=== PATIENT | female | born 1985 | race Caucasian/White ===

== ENCOUNTER 2017-03-29 18:00 | Emergency (ER) | payer BC ==
[~2017-03-29] VITALS: Ht 157.5 cm; Wt 78.9 kg
[2017-03-29] MEDS: IV NORMAL SALINE 1000 ML BAG IV ONE ×2 (18:23→19:27)
[2017-03-29] MEDS: ONDANSETRON 4 MG/2 ML VIAL IV ONE (18:28)
[2017-03-29] MEDS ORDERED: ONDA4TAB8 SL (18:28)
[2017-03-29] MEDS ORDERED: ONDANSETRON 4 MG/2 ML VIAL ONE ×3 (18:36→21:11)
[2017-03-29 18:38] LABS: CREATININE 0.6 mg/dL (0.6-1.3); POTASSIUM 3.7 mmol/L (3.5-5.1)
[2017-03-29 18:42] LABS: BASOPHILS % (AUTO) 0.3 % (0.0-2.0); EOSINOPHILS # (AUTO) 0.1 K/uL (0.0-0.7); EOSINOPHILS % (AUTO) 0.5 % (0.0-7.0); HEMATOCRIT 41.1 % (37-47); HEMOGLOBIN 13.3 G/DL (12.0-16.0); LYMPHOCYTES # (AUTO) 1.5 K/UL (0.8-4.8); LYMPHOCYTES % (AUTO) 12.9 % (20.5-51.5); MEAN CORPUSCULAR HGB CONC 32 g/dL (32.0-37.0); MEAN CORPUSCULAR VOLUME 83.3 FL (81.0-99.0); MONOCYTES # (AUTO) 0.3 K/UL (0.1-1.30); NEUTROPHILS # (AUTO) 9.4 K/UL (1.8-8.9); NEUTROPHILS % (AUTO) 83.3 % (38.5-71.5); PLATELET COUNT (AUTO) 316 K/UL (150-450); RED BLOOD CELL COUNT(AUTO) 4.93 MIL/UL (4.2-5.4); WHITE BLOOD COUNT (AUTO) 11.3 K/UL (4.0-11.2)
[2017-03-29 18:43] LABS: BILIRUBIN,DIRECT 0.2 mg/dL (0.0-0.2); BILIRUBIN,TOTAL 1.2 mg/dL (0.2-1.0); TOTAL PROTEIN, SERUM 7.5 g/dL (6.4-8.2)
--- NOTE | 2017-03-29 18:44 | NUR ---
Patient is resting comfortably in bed with eyes closed, NAD noted. Family at the bedside.
[2017-03-29 19:13] LABS: BAND % (MANUAL) 2 % (0-10); EOSINOPHILS % (MANUAL) 1 % (0-8); LYMPHOCYTES % (MANUAL) 13 % (20-40); MONOCYTES % (MANUAL) 2 % (2-10); NEUTROPHILS % (MANUAL) 82 % (42-75)
[2017-03-29] MEDS: ONDANSETRON IV *ER 4 MG/2 ML VIAL IV ONE ×2 (19:19→21:03)
--- NOTE | 2017-03-29 19:20 | NUR ---
Received report from MARGY Guerra. Assumed care of pt at this time. Fluid bolus completed. U/S at bedside. Pt cont vomiting. MD notified and pt medicated, will monitor for effects of medication. Pt resting in position of comfort for self. Family at bedside.
[2017-03-29] MEDS: METOCLOPRAMIDE HCL 10 MG/2 ML VIAL IV ONE (21:03)
--- NOTE | 2017-03-29 21:04 | NUR ---
Second liter completed. Pt was to be discharged. Attempted discharge and pt began vomiting. MD notified and pt medicated, will monitor for effects of medication. Pt resting in position of comfort for self
[2017-03-29] MEDS ORDERED: METOCLOPRAMIDE HCL 10 MG/2 ML VIAL ONE (21:11)
--- NOTE | 2017-03-29 21:41 | NUR ---
Vomiting resolved. Pt sts she is ready to go home. Pt stable for discharge per MD. IV dc'd, catheter intact. Drsg applied. No problems noted to site. Pt and family given ACI. Both verbalized understanding of dc instructions. Pt ambulated out of er with steady gait and ride home.
[2017-03-29 21:44] VITALS: BP 130/65
[2017-03-29 22:03] LABS: *BILIRUBIN,URIN NEGATIVE (NEGATIVE); *BLOOD, URINE NEGATIVE (NEGATIVE); *CLARITY,URINE SLIGHTLY CLOUDY (CLEAR); *COLOR,URINE YELLOW (YELLOW); *KETONES,URINE 4+ (NEGATIVE); *PROTEIN,URINE 1+ (NEGATIVE); LEUKOCYTE ESTERASE ,URINE NEGATIVE (NEGATIVE); NITRITE, URINE NEGATIVE (NEGATIVE); PH,URINE 6.5 (5.0-8.0); UGLUCOSE NEGATIVE (NEGATIVE)
[2017-03-29 22:11] LABS: BACTERIA,URINE MANY /HPF (NONE SEEN); MUCUS,URINE MANY /LPF (0-FEW); SQUAMOUS EPITHELIAL CELL,UR MANY /HPF (NONE SEEN)
== END 2017-03-29 21:45 | disposition home or self-care (01) ==
LOC: ER 18:00
DX: O21.0 Mild hyperemesis gravidarum (principal); Z3A.13 13 weeks gestation of pregnancy; Z88.2 Allergy status to sulfonamides; Z88.6 Allergy status to analgesic agent
CPT/HCPCS: 36415; 76856; 83690; 85025; 86850; 86900; 86901; A4663; J2405; J2765; J7030

== ENCOUNTER 2017-06-06 21:03 | Emergency (ER) | payer BC ==
[~2017-06-06] VITALS: Ht 157.5 cm; Wt 80.3 kg
[~2017-06-06 21:03] MED LIST: ONDA4TAB8 SL
[2017-06-06] MEDS ORDERED: PROCHLORPERAZINE 25 MG SUPP (21:15)
[2017-06-06] MEDS ORDERED: FAMOTIDINE 20 MG TABLET (21:15)
[2017-06-06] MEDS ORDERED: DICLEGIS (21:15)
[2017-06-06] MEDS ORDERED: DOCU-141 PO (21:16)
--- NOTE | 2017-06-06 21:45 | NUR ---
PATIENT WALKED INTO ER VOMITING. PATIENT EPISODE STARTED THIS AM AND HAS NOT GETTING ANY BETTER
[2017-06-06] MEDS ORDERED: IV NORMAL SALINE 1000 ML BAG IV ONE ×2 (22:00→23:15)
[2017-06-06] MEDS ORDERED: ONDANSETRON 4 MG/2 ML VIAL IV ONE ×2 (22:00→23:15)
[2017-06-06] MEDS ORDERED: ONDANSETRON 4 MG/2 ML VIAL ONE ×3 (22:12→23:21)
[2017-06-06 22:17] LABS: BASOPHILS % (AUTO) 0.2 % (0.0-2.0); EOSINOPHILS # (AUTO) 0.1 K/uL (0.0-0.7); EOSINOPHILS % (AUTO) 0.4 % (0.0-7.0); HEMATOCRIT 38.8 % (37-47); HEMOGLOBIN 12.7 G/DL (12.0-16.0); LYMPHOCYTES # (AUTO) 1.8 K/UL (0.8-4.8); LYMPHOCYTES % (AUTO) 14.2 % (20.5-51.5); MEAN CORPUSCULAR HEMOGLOBIN 27.2 UUG (27.0-31.0); MEAN CORPUSCULAR HGB CONC 33 g/dL (32.0-37.0); MONOCYTES # (AUTO) 0.5 K/UL (0.1-1.30); MONOCYTES % (AUTO) 4.3 % (0.0-11.0); NEUTROPHILS # (AUTO) 10.2 K/UL (1.8-8.9); NEUTROPHILS % (AUTO) 80.9 % (38.5-71.5); PLATELET COUNT (AUTO) 326 K/UL (150-450); RED BLOOD CELL COUNT(AUTO) 4.67 MIL/UL (4.2-5.4); WHITE BLOOD COUNT (AUTO) 12.6 K/UL (4.0-11.2)
[2017-06-06] MEDS ORDERED: PANTOPRAZOLE SODIUM 40 MG VIAL ONE (22:17)
[2017-06-06 22:20] LABS: *BILIRUBIN,URIN NEGATIVE (NEGATIVE); *BLOOD, URINE Trace-intact (NEGATIVE); *CLARITY,URINE CLOUDY (CLEAR); *COLOR,URINE YELLOW (YELLOW); *KETONES,URINE 4+ (NEGATIVE); *PROTEIN,URINE 2+ (NEGATIVE); *UROBILINOGEN,URINE 0.2 E.U./dl (NORMAL); LEUKOCYTE ESTERASE ,URINE TRACE (NEGATIVE); NITRITE, URINE NEGATIVE (NEGATIVE); PH,URINE 7.5 (5.0-8.0); UGLUCOSE NEGATIVE (NEGATIVE)
[2017-06-06 22:21] LABS: CREATININE 0.6 mg/dL (0.6-1.3); POTASSIUM 3.3 mmol/L (3.5-5.1)
[2017-06-06 22:27] LABS: BILIRUBIN,DIRECT 0.1 mg/dL (0.0-0.2); BILIRUBIN,TOTAL 0.8 mg/dL (0.2-1.0); TOTAL PROTEIN, SERUM 7.8 g/dL (6.4-8.2)
[2017-06-06 22:31] LABS: BACTERIA,URINE MANY /HPF (NONE SEEN); SQUAMOUS EPITHELIAL CELL,UR MANY /HPF (NONE SEEN)
--- NOTE | 2017-06-07 00:45 | NUR ---
PATIENT UNABLE TO HOLD PO. PATIENT VOMITED AFTER DRINKING JUICE AND EATTING CRACK
[2017-06-07] MEDS ORDERED: PROCHLORPERAZINE EDISYLATE 10 MG/2 ML VIAL IV ONE (01:00)
[2017-06-07] MEDS ORDERED: IV D5/ 0.9% NACL 1,000 ML IV ONE (01:00)
--- NOTE | 2017-06-07 01:39 | NUR ---
DR TRISTAN SPOKE WITH DR BECK DOOLEY MD FOR PATIENT REGARDING TRANSFERING PATIENT FOR ADMISSION
[2017-06-07] MEDS ORDERED: PROCHLORPERAZINE EDISYLATE 10 MG/2 ML VIAL ONE (01:47)
--- NOTE | 2017-06-07 01:55 | NUR ---
CALLED [facility] AND SPOKE WITH [facility] [facility] [employer] REGARDING TRANSFERING PATIENT REQUESTED BY DR SOLARES . FAXED FACESHEET REQUESTED
--- NOTE | 2017-06-07 03:05 | NUR ---
[employer] [employer] CALLED [facility] AND INFORM THAT THERE IS NO BEDS AVAILBALE TO ACCEPT PATIENT
--- NOTE | 2017-06-07 03:06 | NUR ---
IV removed. Catheter intact and site benign. Pressure and 4x4 gauze applied to site. No bleeding noted.
--- NOTE | 2017-06-07 03:08 | NUR ---
PATIENT REQUESTING TO GO HOME. STATING "I FEEL BETTER. I JUST WANT TO GO HOME AT THIS POINT AND CALL MY OBGYN LATER TODAY." DR TRISTAN INTO SPEAK WITH PATIENT
[2017-06-07 03:20] VITALS: BP 122/72
--- NOTE | 2017-06-07 03:24 | NUR ---
Patient discharged to home in stable conditon WITH TAKING PATIENT HOME. Written and verbal after care instructions given. Patient verbalizes understanding of instructions. WALKED OUT OF ER WITH NO DISTRESS NOTED
== END 2017-06-07 03:24 | disposition home or self-care (01) ==
LOC: ER 21:05
DX: O21.0 Mild hyperemesis gravidarum (principal); Z3A.22 22 weeks gestation of pregnancy; Z88.2 Allergy status to sulfonamides; Z88.6 Allergy status to analgesic agent
CPT/HCPCS: 36415; 83690; 85025; A4663; C9113; J0780; J2405; J7030; J7042